=== PATIENT | male | born 1965 | race Caucasian/White ===

== ENCOUNTER 2020-06-23 07:31 | Day surgery (SDC) | payer OTHER, SELFPAY ==
[~2020-06-23] VITALS: Ht 177.8 cm; Wt 81.6 kg
[2020-06-23] MEDS ORDERED: fentaNYL citrate 0.05 MG/ML VIAL ONE (09:53)
[2020-06-23] MEDS ORDERED: LIDOCAINE 2% 100 MG/5 ML UJET TP ONE (09:53)
[2020-06-23] MEDS ORDERED: MIDAZOLAM 5 MG/5 ML VIAL ONE (09:53)
[2020-06-23] MEDS ORDERED: fentaNYL citrate 0.05 MG/ML VIAL IVP ONE (14:45)
== END 2020-06-23 10:40 | disposition home or self-care (01) ==
LOC: MDS 07:31 → MMU 07:32 → MDS 10:40
PROVIDERS: ATTEND Internal Medicine Gastroenterology
DX: Z12.11 Encounter for screening for malignant neoplasm of colon (principal); D12.3 Benign neoplasm of transverse colon; K64.8 Other hemorrhoids; I10 Essential (primary) hypertension; Z80.0 Family history of malignant neoplasm of digestive organs; Z79.899 Other long term (current) drug therapy; Z20.828 Contact with and (suspected) exposure to other viral communicable diseases
CPT/HCPCS: 45385; J3010; U0003; J2250